=== PATIENT | female | born 1975 | race Caucasian/White ===

== ENCOUNTER 2021-08-02 11:58 | Emergency (ER) | payer MEDICARE, MEDICAID ==
[~2021-08-02] VITALS: Ht 165.1 cm; Wt 81.8 kg
[2021-08-02] MEDS: OxyCODONE HCL/ACETAMINOPHEN 5-325 MG TABLET PO ONE (15:00)
[2021-08-02] MEDS: KETOROLAC TROMETHAMINE 30 MG/ML VIAL IM ONE (16:44)
[2021-08-02] MEDS: LIDOCAINE 5% TRANSDERMAL PATCH TD ONE (16:44)
[2021-08-02] MEDS: ACETAMINOPHEN 500 MG TABLET PO ONE (22:19)
[2021-08-02 22:23] VITALS: BP 136/78
== END 2021-08-02 22:26 | disposition home or self-care (01) ==
LOC: EMS 11:58
DX: M54.31 Sciatica, right side (principal); M79.604 Pain in right leg; Z90.49 Acquired absence of other specified parts of digestive tract; Z98.890 Other specified postprocedural states; Z86.718 Personal history of other venous thrombosis and embolism
CPT/HCPCS: 93971; 96372; 99284; J1885